=== PATIENT | male | born 1940 | race Two or more races ===

== ENCOUNTER 2019-12-27 11:20 | Day surgery (SDC) | payer MEDICARE, MEDICAID ==
[~2019-12-27] VITALS: Ht 152.4 cm; Wt 72.6 kg
[~2019-12-27 11:20] MED LIST: ASP81EC PO; ATEN-60 PO; CLOP75TA28 PO; DEXL60CA3 PO; GLIP1TAB8 PO; LEVO75TA6 PO; PEN400T PO; POM PO
[2019-12-27] MEDS ORDERED: LIDOCAINE 2%HCL (LOCAL ANESTH.) INJ 20ML MDV ONE (12:34)
[2019-12-27] MEDS ORDERED: IODIXANOL 320MG/ML 100ML BTL IV ONE ×2 (12:35→13:26)
[2019-12-27] MEDS ORDERED: fentaNYL CITRATE 100 MCG/2 ML VL ONE (12:48)
[2019-12-27] MEDS ORDERED: MIDAZOLAM HCL 1MG/1ML-2 ML VIAL ONE (12:49)
[2019-12-27] MEDS ORDERED: ANGIOMAX 250 MG VIAL IV ONE (13:19)
[2019-12-27] MEDS ORDERED: SODIUM CHL 0.9% 0 ML ONE (13:19)
[2019-12-27] MEDS ORDERED: HEPARIN SODIUM (PORCINE) 5000 UNITS/ML 1ML VIAL ONE (13:20)
== END 2019-12-27 15:41 | disposition home or self-care (01) ==
LOC: CATH 11:20
PROVIDERS: ATTEND Internal Medicine
DX: I25.810 Atherosclerosis of coronary artery bypass graft(s) without angina pectoris (principal); I25.2 Old myocardial infarction; I73.9 Peripheral vascular disease, unspecified; G30.9 Alzheimer's disease, unspecified; I10 Essential (primary) hypertension; E11.9 Type 2 diabetes mellitus without complications; E78.5 Hyperlipidemia, unspecified; Z95.1 Presence of aortocoronary bypass graft; Z90.49 Acquired absence of other specified parts of digestive tract; Z98.890 Other specified postprocedural states; Z87.891 Personal history of nicotine dependence; Z79.84 Long term (current) use of oral hypoglycemic drugs; Z79.82 Long term (current) use of aspirin; Z79.899 Other long term (current) drug therapy
CPT/HCPCS: 93455; C1725; C1760; C1769; C1887; C1894; J1644; J2250; J3010; Q9967; 99152; 99153